=== PATIENT | female | born 1995 | race Caucasian/White ===

== ENCOUNTER 2023-03-29 09:07 | Outpatient (RCR) | payer BC, SELFPAY ==
[2023-03-29 09:15] VITALS: BP 125/82
[2023-03-29] MEDS: INJECTAFER 265 MG IV (09:31)
[2023-03-29 10:00] VITALS: BP 119/76
== END 2023-04-15 23:59 | disposition home or self-care (01) ==
LOC: OID 09:07
PROVIDERS: ATTENDING PHYSICIAN Psychiatry & Neurology Neurology; FAMILY PHYSICIAN Internal Medicine
DX: D50.9 Iron deficiency anemia, unspecified (principal); G43.111 Migraine with aura, intractable, with status migrainosus; G43.709 Chronic migraine without aura, not intractable, without status migrainosus; R79.0 Abnormal level of blood mineral; E53.8 Deficiency of other specified B group vitamins
CPT/HCPCS: 96365; J1439

== ENCOUNTER 2023-05-01 18:53 | Observation (INO) | payer BC, SELFPAY ==
[2023-05-01 11:20] VITALS: BP 109/85
--- NOTE | 2023-05-01 11:44 | ED.GENMED ---
History of Present Illness
General
Chief Complaint: Abdominal Symptoms
Source: patient and family
Exam Limitations: none
Time Seen by Provider: 05/01/23 11:28
Travel History
Have you had any contact with someone who has COVID-19?: No
Do you have any symptoms of coronavirus? Fever > 100 degrees, chills, cough, shortness of breath, sore throat, loss of taste or smell, muscle aches, or headache?: No
History of Present Illness
History of Present Illness:
27-year-old female presents with right-sided abdominal pain as well as vomiting. The patient states she had little bit of back pain yesterday and took note of it. She states it was somewhat mild. Today she woke up feeling okay but then developed
this progressive persistent pain in the right side. Patient states mostly in the right lower abdomen. The pain is constant and moderate to severe. She states she was vomiting and had chills at home but no worse. No diarrhea. She did have a
bowel movement after taking some stool softeners. She denies any injury. No dysuria. No obvious hematuria. Patient denies any abnormal vaginal bleeding or other gynecologic symptoms
Past History
Past History
ED Past Medical History: Asthma, Psychiatric (ADHD, bipolar) and Other (Migraine, Concussion, Kidney stones)
ED Past Surgical History: Other ([place] teeth, Left wrist cyst removed)
Social History
Tobacco: Non-smoker
Alcohol: Occasional
Drug: None
Personal: Single
Living: with roommate
Employment: Employed
Family History
Family History: Other (Reviewed and noncontributory)
Phy Exam
Physical Exam
Physical Exam:
CONSTITUTIONAL Patient alert and oriented to person, place and time. Moderate pain distress. Vital signs reviewed. Patient is standing at the bedside.
HEAD atraumatic, normocephalic.
EYES eyelids normal to inspection, Pupils equally round and reactive to light, Extraocular muscles intact, Conjunctiva normal, Sclera normal.
NECK normal range of motion, Trachea midline, no jugular venous distention.
RESPIRATORY CHEST No respiratory distress noted, Chest expansion equal, Bilateral breath sounds clear.
CARDIOVASCULAR regular rate and rhythm, Heart sounds normal.
ABDOMEN mild right lower quadrant tenderness, no rebound, Bowel sounds normal. No distention.
BACK normal inspection, no obvious deformities
UPPER EXTREMITY range of motion normal, Motor strength normal, no cyanosis, no edema.
LOWER EXTREMITY range of motion normal, Motor strength normal, no cyanosis, no edema.
NEURO Speech normal, No focal motor deficits, Parmele coma scale 15, Memory normal, Cranial Nerves intact to screening exam.
SKIN skin warm, dry, and normal in color.
PSYCHIATRIC patient oriented to person place and time, Normal affect.
Course
Orders/Labs/Results
Orders:
Orders
05/01/23 11:30
Test Result ONCE
05/01/23 11:41
Morphine Sulfate 4 mg IV NOW STA
Ondansetron Injectable [Zofran] 4 mg IV NOW STA
05/01/23 11:42
0.9% Sodium Chloride 1000 ml [Nss] 1,000 ml IV BOLUS
05/01/23 11:43
Complete Blood Count/With Diff Urgent
Comprehensive Metabolic Panel Urgent
Lipase Urgent
05/01/23 11:50
HCG, Urine Qualitative Screen Urgent
Date Specimen was Collected: 05/01/23
Time Specimen was Collected: 11:47
Urinalysis Reflex To Culture Urgent
Date Specimen was Collected: 05/01/23
Time Specimen was Collected: 11:47
Urine Microscopic Reflex Cult Urgent
05/01/23 12:09
Ketorolac [Toradol] 15 mg IV NOW STA
05/01/23 12:39
CT Abd/pel W Iv And Oral Contr Urgent
Comment:
Reason For Exam: RLQ abd pain
Iohexol [Omnipaque] See Protocol PO NOW STA
05/01/23 12:41
Renal & Bladder US [US Renal With Bladder] Urgent
Comment:
Reason For Exam: R sided pain
US Pelvis W Transvag Combined Urgent
Reason For Exam: R abd/pelvic pain
05/01/23 14:46
HYDROmorphone [Dilaudid] 0.5 mg .ROUTE .STK-MED ONE
05/01/23 14:48
HYDROmorphone [Dilaudid] 0.5 mg IV NOW STA
05/01/23 17:28
HYDROmorphone [Dilaudid] 0.5 mg IV NOW STA
Ondansetron Injectable [Zofran] 4 mg IV NOW STA
05/01/23 18:20
Lactated Ringers [Lr] 1,000 ml IV BOLUS
05/01/23 18:21
Ketorolac [Toradol] 15 mg IV NOW STA
05/01/23 18:37
0.9% Sodium Chloride [Nss (Preservative Free)] 10 ml IV NOW STA
Pantoprazole [Protonix IV] 40 mg IV NOW STA
05/01/23 18:39
0.9% Sodium Chloride [Nss (Preservative Free)] 8 ml IV NOW STA
Famotidine [Pepcid] 20 mg IV NOW STA
05/01/23 18:42
Admit/Transfer Patient As Directed
Co-Sign Provider:
Level of Care: Observation services
Assign to:: Medical/Surgical
Physician / Group: jasper camargo
Diagnosis: abdominal pain
Code Status As Directed
Resuscitation Status: Full Code
05/01/23 18:44
Norovirus by PCR Routine
JEANCARLOS Source: Feces/Stool
Specimen Description:
Stool Culture Routine
JEANCARLOS Source: Feces/Stool
Specimen Description:
Stool For WBC Stat
JEANCARLOS Source: Feces/Stool
Specimen Description:
Yersinia Culture-Stool Routine
JEANCARLOS Source: Feces/Stool
Specimen Description:
05/01/23 19:00
Flush (0.9% Sodium Chloride) [Flush (Nss)] See Dose Instructions IV PER PROTOCOL
05/01/23 19:04
COVID-19 Antigen Urgent
Source: Nasal Swab
Influenza A+B Rapid Molecular Urgent
JEANCARLOS Source: Nasal Swab
Specimen Description:
05/01/23 19:55
Morphine Sulfate 1 mg IV Q4HPRN PRN
05/01/23 21:23
Acetaminophen [Tylenol] 650 mg PO Q4HPRN PRN
Ketorolac [Toradol] 15 mg IV Q6HPRN PRN
Lactated Ringers [Lr] 1,000 ml IV 100 mls/hr
Ondansetron Injectable [Zofran] 4 mg IV Q6HPRN PRN
Rizatriptan Orally Disintegrat [Maxalt [employer] Route Supervisor (Orally Disintegrating)] 10 mg PO DAILYPRN PRN
05/01/23 21:23
Activity As Directed
Activity Level: As Tolerated
Pneumatic Compression Sleeves As Directed
Type: Knee high
Vital Signs As Directed
Frequency: Per unit guidelines
DX Deep Vein Thrombosis Video Routine
05/02/23 Breakfast
Clear Liquid
At Your Request: Full Participation
05/02/23 07:42
Complete Blood Count/No Diff IN AM
Comprehensive Metabolic Panel IN AM
05/02/23 08:00
Lamotrigine [Lamictal] 75 mg PO DAILY
Pantoprazole [Protonix IV] 40 mg IV BID
methylphenidate HCl 0 mg PO DAILY
Abnormal Lab Results
05/01/23 05/01/23
11:43 11:50
WBC 11.5 H 10^3/uL
(4.8-10.8)
MCH 32.1 H pg
(27.0-31.0)
Absolute Neuts (auto) 9.4 H 10^3/uL
(1.4-6.5)
Absolute Monos (auto) 0.7 H 10^3/uL
(0.1-0.6)
Neutrophils % 82.0 H %
(42.2-75.2)
Lymphocytes % 10.3 L %
(20.5-51.1)
Calcium 11.0 H mg/dl
(8.4-10.2)
Leukocyte Esterase Rfl Trace A
(Negative)
05/01/23 11:43
05/01/23 11:43
Vital Signs
Initial and Last Documented VS:
Initial Vital Signs
Temp Pulse Resp BP Pulse Ox
98.6 F 64 16 109/85 98
05/01/23 11:20 05/01/23 11:20 05/01/23 11:20 05/01/23 11:20 05/01/23 11:20
Last Documented Vital Signs
Temp Pulse Resp BP Pulse Ox
98.3 F 82 16 118/80 98
05/02/23 15:02 05/02/23 15:02 05/02/23 15:02 05/02/23 15:02 05/02/23 15:02
MDM/Problems Addressed
MDM/Problems Addressed:
Vomiting, abdominal pain
*Pulse Oximetry
Patient hypoxic: no
*Critical Care Note
Total Time (30-74mins, 75-104mins- exclusive of procedures): Not Applicable
Data Reviewed
Review of Other/Old Records Reveals: Radiology Studies (Prior CT of the abdomen report reviewed. July 2022)
Prescriptions/Medications Considered But Not Given:
Considered antibiotics but no signs of UTI or appendicitis
Patient Management
Escalation/DeEscalation of care consider admission/obs:
27-year-old female presents with severe abdominal pain and vomiting. CT negative for appendicitis. Ultrasound grossly unremarkable. Pain does continue to return as pain medications wear off. Briefly will be controlled with pain control but pain
returns to a significant degree. Anticipate admission for pain control. Question whether this could be viral in nature. Continue to monitor
ED Attending Note
-
Portions of this chart may have been created with voice recognition software.� Occasional wrong word or��sound alike� substitutions may have occurred due to the inherent limitations of voice recognition software.
Discharge Plan
Departure
Patient Disposition: Admit
Date of Disposition: 05/01/23
Time of Disposition: 17:49
Admit to: Med/Surg
Presentation/result/management discussed w/ accepting MD/DO: Hospitalist
Discharge Problem:
Intractable vomiting, Intractable abdominal pain
Interventions
Interventions:
*Risk Screen - Suicide Last Done: 05/01/23 11:30
*General Assessment Last Done: 05/01/23 11:30
*Neglect/Abuse Screening Last Done: 05/01/23 11:30
ED- Fall Risk Assessment Last Done: 05/01/23 21:30
*ED COVID-19 Vaccine History Last Done: 05/01/23 11:20
*Nursing Disposition Last Done: 05/01/23 21:30
WK-Vfncjg-Jurrjuoyqi Assessment Last Done: 05/01/23 11:30
Discharge Date and Time
Discharge Date/Time: 05/01/23 21:31
[2023-05-01 11:55] LABS: % Basophils 0.7 % (0-2); % Eosinophils 0.9 % (0-6); % Immature Granulocytes 0.3 % (0-0.5); % Lymphocytes 10.3 % (20.5-51.1); % Monocytes 5.8 % (1.7-9.3); Absolute Basophils 0.1 10^3/uL (0-0.2); Absolute Eosinophils 0.1 10^3/uL (0-0.7); Absolute Lymphocytes 1.2 10^3/uL (1.2-3.4); Absolute Monocytes 0.7 10^3/uL (0.1-0.6); Absolute Neutrophils 9.4 10^3/uL (1.4-6.5); Hematocrit 41.9 % (37.0-47.0); Hemoglobin 14.1 g/dL (12.0-16.0); Mean Corp Hgb Conc. 33.7 g/dL (33.0-37.0); Mean Corpuscular Hgb 32.1 pg (27.0-31.0); Mean Corpuscular Volume 95.4 fL (81.0-99.0); Mean Platelet Volume 10.4 fL (7.4-10.4); Nucleated Red Blood Cells % 0 %; Platelet Count 224 10^3/uL (130-400); Red Blood Cell Count 4.39 10^6/uL (4.20-5.40); Red Cell Dist. Width 11.9 % (11.5-14.5); White Blood Cell Count 11.5 10^3/uL (4.8-10.8)
[2023-05-01] MEDS: MORPHINE SULFATE 4 MG IV (11:57)
[2023-05-01] MEDS: ZOFRAN 4 MG IV ×2 (11:58→17:31)
[2023-05-01] MEDS: NSS 1000 IV (11:58)
[2023-05-01 12:08] LABS: ALT (SGPT) 20 U/L (0-35); AST (SGOT) 25 U/L (14-36); Alkaline Phosphatase 65 U/L (38-126); Blood Urea Nitrogen 10 mg/dl (7-17); Carbon Dioxide 28 mmol/L (22-30); Chloride 106 mmol/L (98-107); Glucose 86 mg/dl (70-99); Lipase 98 U/L (23-300); Potassium 3.8 mmol/L (3.5-5.1); Sodium 140 mmol/L (135-145); Total Bilirubin 0.9 mg/dl (0.2-1.3); Total Protein 7.8 g/dl (6.3-8.2); eGFR > 60.00
[2023-05-01 12:12] LABS: HCG, Urine Qualitative Screen Negative
[2023-05-01] MEDS: TORADOL 15 MG IV ×2 (12:12→19:05)
[2023-05-01 12:27] LABS: Urine Albumin Negative (Neg - Trace); Urine Bilirubin Negative (Negative); Urine Character Clear (Clear); Urine Color Yellow; Urine Glucose Negative (Negative); Urine Ketone Negative (Negative); Urine Leukocyte Trace (Negative); Urine Nitrite Negative (Negative); Urine Occult Blood Negative (Negative); Urine Specific Gravity 1.005 (<1.030); Urine Urobilinogen Negative (Neg - 1+)
[2023-05-01] MEDS: OMNIPAQUE 50 ML PO (12:46)
[2023-05-01 12:52] LABS: Urine Red Blood Cell 0-2 /HPF (0-2)
[2023-05-01 13:00] VITALS: BP 118/74
[2023-05-01] MEDS: DILAUDID 0.5 MG IV ×2 (14:49→17:31)
[2023-05-01 15:00] VITALS: BP 129/77
[2023-05-01 17:30] VITALS: BP 129/87
--- NOTE | 2023-05-01 18:26 | HPS.HSE ---
Addendum entered and electronically signed by Igor Mata MD 05/01/23 18:56:
I saw and examined the patient.
The OBSTETRICAL ANESTHESIOLOGIST or PA's note was reviewed and I agree with the note.
Comment:
27-year-old female with past medical history of asthma, ADHD, bipolar disease, migraine, kidney stones now presents for right-sided abdominal pain with subsequent �intractable vomiting.� Initially started with back pain yesterday, worsened with
progressive persistent pain to the right side today.� Pain is localized to the right lower abdomen, nontender.� Does not knowledge chills, vomiting, no diarrhea.� Pain causing n/v.
Vitals: normotensive, heart rate 130, afebrile, respiratory 20.
�White count 11.5 UA negative, hCG negative, both transvaginal and pelvic ultrasound as well as renal ultrasound unremarkable.� Plan�most likely viral gastroenteritis although no diarrhea.� PPI IV daily, famotidine now, IV fluids.� SARS-CoV-2, flu.�
Follow-up stool cultures, including norovirus if having any bowel movements.� Denies drug use. . if continued symptoms, will consult GI. Otherwise outpatient f/u.
Original Note:
Family Physician
-
Family Physician: Jan Verdugo
Chief Complaint
-
right lower quadrant pain
History of Present Illness
27-year-old female with PMH for ADHD,bipolar, migraine presented to us with right sided abdominal pain associated with n/v since yesterday. got worse today. denied any diarrhea. denied STORY< dizzy or syncopal episode. denied fever, chills, chest pain,
sob. denied dysuria or hematuria.
admitting for further management.
Medical History
Past Medical History
Past Medical History: Reports Other
Additional Past Medical History:
ADHD
biplar
migraine STORY
concussion
kidney stones
Past Surgical History: Reports None
Social History
Tobacco: Non-smoker
Alcohol: Occasional
Drug: None
Personal: Single
Employment: Employed
Family History
Family History: Not pertinent
Allergies / Home Medications
Allergies reflects when Allergies were last updated in [facility].
Home Medications with original date entered in [facility]
Allergy/Medication List:
Allergies
Allergy/AdvReac Type Severity Reaction Status Date / Time
Penicillins Allergy Hives/itchi Verified 05/01/23 11:21
ng
Home Medications
acetaminophen 500 mg tablet (Tylenol Extra Strength) 1,000 mg PO DAILYPRN PRN fever 07/08/21
lamotrigine 25 mg chewable dispersible tablet 75 mg PO DAILY migraines 07/08/21
methylphenidate HCl 36 mg tablet,extended release 24 hr 72 mg PO DAILY Attention deficit disorder 07/08/21
rizatriptan 10 mg tablet (Maxalt) 10 mg PO DAILYPRN PRN migraine 07/08/21
rimegepant 75 mg disintegrating tablet (Nurtec ODT) 75 mg PO ONCE PRN migraine 05/16/22
norethindrone (contraceptive) 0.35 mg (21) tablet 0.35 mg PO HS CONTROL 08/10/22
Ferrasorb 36 mg PO HS 03/29/23
atogepant 60 mg tablet (Qulipta) 60 mg PO DAILY 03/29/23
Review of Systems
-
Constitutional: Reports No Symptoms
EENT: Reports No Symptoms
Respiratory: Reports No Symptoms
Cardiac: Reports No Symptoms
Abdomen/GI: Reports Abdominal Pain, Nausea and Vomiting
: Reports No Symptoms
Musculoskeletal: Reports No Symptoms
Skin: Reports No Symptoms
Neurological: Reports No Symptoms
Endocrine: Reports No Symptoms
Hematologic/Lymphatic: Reports No Symptoms
Psych: Reports No Symptoms
Physical Exam
Vital Signs
Vital Signs
Temp Pulse Resp BP Pulse Ox
98.5 F 130 20 129/87 100
05/01/23 17:30 05/01/23 17:30 05/01/23 17:30 05/01/23 17:30 05/01/23 17:30
Physical Exam
General: Well Developed, Well Nourished and No Apparent Distress
HEENT: NormoCephalic, Moist mucous membranes and Atraumatic
Respiratory: Clear
Cardiac: S1/S2 and Regular Rhythm; No Murmur or Rub
GI: Soft, Non Distended, Normal Bowel Sounds and Tender; No Organomegaly
Rectal: Deferred by Provider
Musculoskeletal: No Clubbing, No Cyanosis and No Edema
Skin: No Rash
Neuro: AO x 3 and Nonfocal/grossly intact
Psych: Calm
Laboratory Results
-
05/01/23 11:43
05/01/23 11:43
Laboratory Results
Total Bilirubin 0.9 mg/dl (0.2-1.3) 05/01/23 11:43
AST 25 U/L (14-36) 05/01/23 11:43
ALT 20 U/L (0-35) 05/01/23 11:43
Alkaline Phosphatase 65 U/L (38-126) 05/01/23 11:43
Lipase 98 U/L (23-300) 05/01/23 11:43
Data Reviewed
-
CT Scan: Report Reviewed by me
Ultrasound: Report Reviewed by me
Lab Data: Labs Reviewed by me
Impression/Plan
-
#severe abdominal pain/intractable vomiting
-renal US with �Essentially unremarkable renal ultrasound, as detailed above. Incidental findings as described.
-pelvis transvaginal US with unremarkable
-CT abdomen pelvis with No significant acute abnormality identified in the abdomen or pelvis, as described above. Normal appendix.
-UA negative
-wbc 11.5
-clear liquid diet
-stool for cultures and norovirus
-LR 100cc/hr
-IV PPI bid
--Toradol,morphine prn for pain
-Zofran prn for n/v
-consider GI consult, if no improvement in abdominal pain
#HX ADHD on Methylphenidate for last 10 yrs
#HX Bipolar dz maintain on Lamictal
#HX Migraines
#SCD
#Full code
Obs
[2023-05-01] MEDS: LR 1000 IV ×2 (18:59→21:36)
--- NOTE | 2023-05-01 19:00 | EDRN ---
Report received, patient being medicated att his time, call donald in reach.
[2023-05-01] MEDS: PROTONIX IV 40 MG IV (19:05)
[2023-05-01] MEDS: PEPCID 20 MG IV (19:09)
[2023-05-01] MEDS: NSS (PRESERVATIVE FREE) 10 ML IV (19:09)
[2023-05-01] MEDS: NSS (PRESERVATIVE FREE) 8 ML IV (19:10)
[2023-05-01 19:12] VITALS: BMI 18.4
[2023-05-01 19:33] LABS: COVID-19 Antigen Negative (Negative)
--- NOTE | 2023-05-01 20:22 | EDRN ---
No delay sent to the floor
[2023-05-01] MEDS: MORPHINE SULFATE 1 MG IV (21:07)
[2023-05-01 21:36] VITALS: BP 147/98; BMI 18.6
[2023-05-01 23:16] VITALS: BP 113/70
[2023-05-02] MEDS: TORADOL 15 MG IV ×2 (00:26→20:42)
[2023-05-02] MEDS: ZOFRAN 4 MG IV ×3 (01:11→19:24)
[2023-05-02] MEDS: MORPHINE SULFATE 1 MG IV ×4 (01:13→19:24)
[2023-05-02] MEDS: LR 1000 IV ×2 (06:43→17:22)
[2023-05-02 07:52] VITALS: BP 111/76
[2023-05-02 07:58] LABS: Hematocrit 29.1 % (37.0-47.0); Hemoglobin 10.2 g/dL (12.0-16.0); Mean Corp Hgb Conc. 35.1 g/dL (33.0-37.0); Mean Corpuscular Volume 94.2 fL (81.0-99.0); Mean Platelet Volume 10.5 fL (7.4-10.4); Platelet Count 149 10^3/uL (130-400); Red Blood Cell Count 3.09 10^6/uL (4.20-5.40); Red Cell Dist. Width 11.9 % (11.5-14.5); White Blood Cell Count 5.8 10^3/uL (4.8-10.8)
[2023-05-02] MEDS: LAMICTAL 75 MG PO (08:35)
[2023-05-02] MEDS: PROTONIX IV 40 MG IV ×2 (08:36→20:31)
[2023-05-02] MEDS: NSS (PRESERVATIVE FREE) 10 ML IV ×2 (08:36→20:31)
[2023-05-02 08:51] LABS: ALT (SGPT) 14 U/L (0-35); AST (SGOT) 21 U/L (14-36); Albumin 3.2 g/dl (3.5-5.0); Alkaline Phosphatase 43 U/L (38-126); Blood Urea Nitrogen 6 mg/dl (7-17); Calcium 8.5 mg/dl (8.4-10.2); Carbon Dioxide 23 mmol/L (22-30); Chloride 110 mmol/L (98-107); Estimated Creatinine Clearance 92 ml/min; Glucose 100 mg/dl (70-99); Potassium 3.3 mmol/L (3.5-5.1); Sodium 137 mmol/L (135-145); Total Bilirubin 1.2 mg/dl (0.2-1.3); Total Protein 5.2 g/dl (6.3-8.2); eGFR > 60.00
[2023-05-02] MEDS: KCL ELIXIR 40 MEQ PO (09:44)
[2023-05-02] MEDS: NON-FORMULARY ITEM 72 MG PO (11:00)
[2023-05-02] MEDS: NON-FORMULARY ITEM 60 MG PO (11:15)
--- NOTE | 2023-05-02 13:03 | W.PN.HOSP.TC ---
Addendum entered and electronically signed by Igor Mata MD 05/02/23 13:10:
DVT ppx - SCDs, patient ambulating
Original Note:
Today's Communication/Plan
-
symptomatic Control
GI consulted
Assessment / Plan
Assessment / Plan
Physical Exam
General: Well Developed, Well Nourished and No Apparent Distress
HEENT: NormoCephalic, Moist mucous membranes and Atraumatic
Respiratory: Clear
Cardiac: S1/S2 and Regular Rhythm; No Murmur or Rub
GI: Soft, Mild RLQ tenderness; Non Distended, Normal Bowel Sounds and Tender; No Organomegaly
Rectal: Deferred by Provider
Musculoskeletal: No Clubbing, No Cyanosis and No Edema
Skin: No Rash
Neuro: AO x 3 and Nonfocal/grossly intact
Psych: Calm
#severe abdominal pain/intractable vomiting
-renal US with �Essentially unremarkable renal ultrasound, as detailed above. Incidental findings as described.
-Denies Cannabinoid, polysubstance use
-pelvis transvaginal US with unremarkable
-CT abdomen pelvis with No significant acute abnormality identified in the abdomen or pelvis, as described above. Normal appendix.
-UA negative
-Cont clear liquid diet
-stool for cultures and norovirus
-LR 100cc/hr
-IV PPI daily
--Toradol,morphine prn for pain
-Zofran prn for n/v
-GI consulted
#Hypokalemia
-monitor and replete
#HX ADHD on Methylphenidate for last 10 yrs
#HX Bipolar dz maintain on Lamictal
#HX Migraines
#SCD
#Full code
Obs
Anticipated Discharge: Within 24 hours
Subjective/Interval History
-
Date of Service: May 02, 2023
still nauseous, non specific right RLQ pain
Objective Data
-
Labs:
Laboratory Results
05/02/23
07:42
WBC 5.8
Hgb 10.2 L D
Hct 29.1 L
Plt Count 149 D
Sodium 137
Potassium 3.3 L
Chloride 110 H
Carbon Dioxide 23
BUN 6 L
Creatinine 0.7
Glucose 100 H
Calcium 8.5 D
Total Bilirubin 1.2
AST 21
ALT 14
Alkaline Phosphatase 43
Vital Signs:
Vital Signs
Temp Pulse Resp BP Pulse Ox
98.8 F 82 16 111/76 97
05/02/23 07:52 05/02/23 07:52 05/02/23 07:52 05/02/23 07:52 05/02/23 07:52
I&O
05/01/23 05/02/23 05/03/23
06:59 06:59 06:59
Intake Total 1000 / 1000
Balance 1000 / 1000
Review of Systems
-
History Source: Patient
All other systems: Reviewed and negative
Data Reviewed
-
CT Scan: Image personally visualized and interpreted and Report Reviewed by me
Ultrasound: Image personally visualized and interpreted and Report Reviewed by me
Labs: Labs Reviewed by me
[2023-05-02 15:02] VITALS: BP 118/80
--- NOTE | 2023-05-02 15:09 | CM ---
Patient seen at bedside. Patient OBS and reviewed form, signed form placed on chart. 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 Patient boyfriend lives with her in a private home. Patient PCP is Dr. Collins and she uses the [facility] in
[place]. CM will continue to follow for discharge planning needs.
Plan; home with no needs anticipated
--- NOTE | 2023-05-02 15:33 | CON.GI ---
Consultation
-
Date/Time Consultation Requested: 05/02/23 10:00am
Date/Time Consultation Performed: 05/02/23 3:34pm
Requesting Provider: Igor Mata
Performing Provider: Bogdan Ferrer
Reason for Consultation: RUQ pain
Medical History
Chief Complaint / HPI
Chief Complaint: RUQ pain
History of Present Illness:
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 Denied previously she had some back pain on both sides before she developed the abdominal pain the next
morning. Workup including CAT scan of the abdomen pelvis, transvaginal ultrasound, renal ultrasound has been negative. She does have a history of renal stones. She tried drinking clear liquids but then this led to vomiting. She has a history of
migraines which she admittedly was taking heavy ibuprofen previously but then was switched to Naprosyn about 3-4 times per week in December. She also has undergone Botox treatment for it.
Past Medical History
Past Medical History: Psychiatric (ADHD, bipolar) and Other (Migraines)
Past Surgical History: None
Social History
Tobacco: Non-Smoker
Alcohol: Occasional
Family History
Family History: Reviewed & Not Pertinent
Allergies / Home Medications
Allergy/AdvReac Type Severity Reaction Status Date / Time
Penicillins Allergy Hives/itchi Verified 05/01/23 11:21
ng
Medication Instructions Recorded
methylphenidate HCl 36 mg 72 mg PO DAILY Attention deficit 07/08/21
tablet,extended release 24 hr disorder
rimegepant 75 mg disintegrating 75 mg PO Q48H PRN migraine 05/16/22
tablet (Nurtec ODT)
Ferrasorb 36 mg PO HS Supplement 03/29/23
atogepant 60 mg tablet (Qulipta) 60 mg PO DAILY migraine 03/29/23
almotriptan malate 12.5 mg tablet 0 mg PO .COMPLEX migraine 05/01/23
cyanocobalamin (vitamin B-12) 1,000 mcg PO DAILY Supplement 05/01/23
1,000 mcg tablet
docusate sodium 100 mg capsule 100 mg PO DAILY PRN constipation 05/01/23
(Colace)
lamotrigine 25 mg tablet 75 mg PO DAILY bipolar 05/01/23
naproxen sodium 220 mg tablet 440 mg PO DAILYPRN PRN mild pain 05/01/23
(Aleve)
norethindrone (contraceptive) 0.35 0.35 mg PO HS CONTROL 05/01/23
mg tablet
ondansetron 4 mg disintegrating 4 mg PO Q8H PRN nausea 05/01/23
tablet
rizatriptan 10 mg tablet 0 mg PO .COMPLEX PRN migraine 05/01/23
ubrogepant 100 mg tablet (Ubrelvy) 100 mg PO DAILYPRN PRN migraine 05/01/23
Review of Systems
-
All other systems: A 12 pt ROS was Negative except as stated above in HPI
Vital Signs
Temp Pulse Resp BP Pulse Ox
98.3 F 82 16 118/80 98
05/02/23 15:02 05/02/23 15:02 05/02/23 15:02 05/02/23 15:02 05/02/23 15:02
Physical Exam
Exam
General: Well Developed, Well Nourished and No Apparent Distress
HEENT: Normocephalic and Atraumatic
Respiratory: Non Labored Respirations
GI: Soft, Non Distended and Tender (RUQ tenderness to deep palpation, somewhat worsened with inspiration)
Skin: Warm and Dry
Results
WBC 5.8 10^3/uL (4.8-10.8) 05/02/23 07:42
Hgb 10.2 g/dL (12.0-16.0) L D 05/02/23 07:42
Hct 29.1 % (37.0-47.0) L 05/02/23 07:42
MCV 94.2 fL (81.0-99.0) 05/02/23 07:42
Plt Count 149 10^3/uL (130-400) D 05/02/23 07:42
Absolute Neuts (auto) 9.4 10^3/uL (1.4-6.5) H 05/01/23 11:43
Sodium 137 mmol/L (135-145) 05/02/23 07:42
Potassium 3.3 mmol/L (3.5-5.1) L 05/02/23 07:42
Chloride 110 mmol/L (98-107) H 05/02/23 07:42
Carbon Dioxide 23 mmol/L (22-30) 05/02/23 07:42
BUN 6 mg/dl (7-17) L 05/02/23 07:42
Creatinine 0.7 mg/dL (0.6-1.0) 05/02/23 07:42
Calcium 8.5 mg/dl (8.4-10.2) D 05/02/23 07:42
Total Bilirubin 1.2 mg/dl (0.2-1.3) 05/02/23 07:42
AST 21 U/L (14-36) 05/02/23 07:42
ALT 14 U/L (0-35) 05/02/23 07:42
Alkaline Phosphatase 43 U/L (38-126) 05/02/23 07:42
Lipase 98 U/L (23-300) 05/01/23 11:43
Diagnostic Image Results:
Prior GI Procedures:
EGD:
Colonoscopy:
Assessment / Plan
-
Summary: 27yo female presents with back pain Wednesday night, followed by RUQ pain and vomiting day morning. CT AP, pelvic US, renal US negative. She has hx renal stones and migraines. She previously took heavy ibuprofen but switched to
Naproxyn last December, which she now takes about 3-4x/week.
Impression:
RUQ pain, vomiting
Naproxyn use
Migraines
Bipolar, ADHD
Renal stones
Recommendations:
Increase protonix to BID to treat possible NSAID ulcer
Check US RUQ to further exclude gallstones, despite negative CT
If no improvement, recommend EGD to evaluate for PUD
-
-
Thank you for consultation and allowing me to participate in the patient's care. Please call the network consultant GI physician during the after hours with any questions or concerns.
[2023-05-02 21:54] VITALS: BP 110/77
[2023-05-03] MEDS: LR 1000 IV ×2 (03:25→14:37)
[2023-05-03] MEDS: MORPHINE SULFATE 1 MG IV ×3 (03:26→20:26)
[2023-05-03 07:20] LABS: Hematocrit 30.8 % (37.0-47.0); Hemoglobin 10.4 g/dL (12.0-16.0); Mean Corp Hgb Conc. 33.8 g/dL (33.0-37.0); Mean Corpuscular Hgb 33.1 pg (27.0-31.0); Mean Corpuscular Volume 98.1 fL (81.0-99.0); Mean Platelet Volume 11.1 fL (7.4-10.4); Platelet Count 164 10^3/uL (130-400); Red Blood Cell Count 3.14 10^6/uL (4.20-5.40); Red Cell Dist. Width 11.7 % (11.5-14.5); White Blood Cell Count 5.7 10^3/uL (4.8-10.8)
[2023-05-03 07:46] LABS: ALT (SGPT) 14 U/L (0-35); AST (SGOT) 22 U/L (14-36); Albumin 3.2 g/dl (3.5-5.0); Alkaline Phosphatase 48 U/L (38-126); Blood Urea Nitrogen 5 mg/dl (7-17); Calcium 8.4 mg/dl (8.4-10.2); Carbon Dioxide 26 mmol/L (22-30); Chloride 108 mmol/L (98-107); Estimated Creatinine Clearance 92 ml/min; Glucose 73 mg/dl (70-99); Potassium 3.4 mmol/L (3.5-5.1); Sodium 136 mmol/L (135-145); Total Bilirubin 1.1 mg/dl (0.2-1.3); Total Protein 5.3 g/dl (6.3-8.2); eGFR > 60.00
[2023-05-03] MEDS: NON-FORMULARY ITEM 72 MG PO (07:46)
[2023-05-03] MEDS: LAMICTAL 75 MG PO (07:48)
[2023-05-03] MEDS: NON-FORMULARY ITEM 60 MG PO (07:48)
[2023-05-03 07:49] VITALS: BP 97/60
[2023-05-03] MEDS: NSS (PRESERVATIVE FREE) 10 ML IV ×2 (07:49→20:24)
[2023-05-03] MEDS: PROTONIX IV 40 MG IV ×2 (07:49→20:24)
[2023-05-03] MEDS: ZOFRAN 4 MG IV ×2 (07:50→14:37)
[2023-05-03] MEDS: TORADOL 15 MG IV (07:50)
[2023-05-03] MEDS: MAXALT MLT (ORALLY DISINTEGRATING) 10 MG PO (08:57)
--- NOTE | 2023-05-03 10:49 | W.PN.GI.CBS2 ---
Today's Communication / Plan
-
Continue protonix BID
Pt wants to try oral intake, solid food
If no better, then consisder EGD tomorrow. Will make NPO p MN in case symptoms persist.
If tolerates diet then OK to d/c
Perhaps NSAID ulcer from naprosyn use for migraine
Current nausea could be migraine related
Assessment / Plan
-
Summary: 27yo female presents with back pain Wednesday night, followed by RUQ pain and vomiting Wednesday morning. CT AP, pelvic US, renal US negative. She has hx renal stones and migraines. She previously took heavy ibuprofen but switched to
Naproxyn last December, which she now takes about 3-4x/week.
US abd- normal
Impression:
RUQ pain, vomiting
Naproxyn use
Migraines
Bipolar, ADHD
Renal stones
Subjective
Subjective
Date of Service: May 03, 2023
Had vomiting after clears this am. Abd pain is improved
Objective
Data Reviewed
Laboratory Data:
Laboratory Results
05/03/23 05:31
05/03/23 05:31
Laboratory Results
Total Bilirubin 1.1 mg/dl (0.2-1.3) 05/03/23 05:31
AST 22 U/L (14-36) 05/03/23 05:31
ALT 14 U/L (0-35) 05/03/23 05:31
Alkaline Phosphatase 48 U/L (38-126) 05/03/23 05:31
Lipase 98 U/L (23-300) 05/01/23 11:43
Vital Signs and I&O:
Vital Signs
Temp Pulse Resp BP Pulse Ox
98.3 F 83 16 97/60 100
05/03/23 07:49 05/03/23 07:49 05/03/23 07:49 05/03/23 07:49 05/03/23 07:49
I&O
05/02/23 05/03/23 05/04/23
06:59 06:59 06:59
Intake Total 1000 / 1000 3360 / 3360
Balance 1000 / 1000 3360 / 3360
Physical Exam
Physical Exam
GI: Soft, Non Distended and Tender (mild/minimal RUQ tender)
--- NOTE | 2023-05-03 12:26 | W.PN.HOSP.TC ---
Today's Communication/Plan
-
Encourage oral intake as tolerated
continue symptomatic care
Assessment / Plan
Assessment / Plan
# Severe abdominal pain/intractable vomiting
-renal US with �Essentially unremarkable renal ultrasound, as detailed above. Incidental findings as described.
-Denies Cannabinoid, polysubstance use
-pelvis transvaginal US with unremarkable
-CT abdomen pelvis with No significant acute abnormality identified in the abdomen or pelvis, as described above. Normal appendix.
-UA negative
-No reported diarrhea any further. Discontinue stool test
-Right upper quadrant abd ultrasound unremarkable
-Continue symptomatic care with pain medication/anti emetics. Slow IV fluid
#Hypokalemia
-monitor and replete
#HX ADHD on Methylphenidate for last 10 yrs
#HX Bipolar dz maintain on Lamictal
#HX Migraines
-Requiring Zofran/Nurtec/Botox/NSAIDs regularly, follows up with Dr Ku
SCD
Full code
Anticipated Discharge: Within 24 hours
Subjective/Interval History
-
Date of Service: May 03, 2023
continues to have pain in right flank
some nausea and decreased appetite
no vomiting episode
Objective Data
-
Labs:
Laboratory Results
05/03/23
05:31
WBC 5.7
Hgb 10.4 L
Hct 30.8 L
Plt Count 164
Sodium 136
Potassium 3.4 L
Chloride 108 H
Carbon Dioxide 26
BUN 5 L
Creatinine 0.7
Glucose 73
Calcium 8.4
Total Bilirubin 1.1
AST 22
ALT 14
Alkaline Phosphatase 48
Vital Signs:
Vital Signs
Temp Pulse Resp BP Pulse Ox
98.3 F 83 16 97/60 100
05/03/23 07:49 05/03/23 07:49 05/03/23 07:49 05/03/23 07:49 05/03/23 07:49
I&O
05/02/23 05/03/23 05/04/23
06:59 06:59 06:59
Intake Total 1000 / 1000 3360 / 3360
Balance 1000 / 1000 3360 / 3360
Review of Systems
-
Respiratory: Reports No Symptoms
Cardiac: Reports No Symptoms
Abdomen/GI: Reports Abdominal Pain and Nausea; Denies Vomiting or Diarrhea
Physical Exam
-
General: No Apparent Distress and Comfortable
HEENT: Negative Oxygen
Neuro: Awake, Alert, Oriented and No Motor Deficits
[2023-05-03 14:33] VITALS: BMI 18.6
--- NOTE | 2023-05-03 14:58 | CM ---
Reviewed the chart notes. No needs identified. CM continues to be available to patient/family and is monitoring medical plan for needs at discharge.
Plan: Discharge to home when stable.
[2023-05-03 15:36] VITALS: BP 135/94
[2023-05-03 23:34] VITALS: BP 99/74
[2023-05-04 08:20] VITALS: BP 94/57
[2023-05-04] MEDS: PROTONIX IV 40 MG IV (08:36)
[2023-05-04] MEDS: NSS (PRESERVATIVE FREE) 10 ML IV (08:37)
--- NOTE | 2023-05-04 09:06 | PTCARENOTE ---
pt aaox3. pt npo due to abd pain. 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 pt went down for EGD this AM via stretcher. AM medications will be given when pt returns to the floor.
[2023-05-04 09:22] VITALS: BP 124/99; BP_SYST 18
--- NOTE | 2023-05-04 09:25 | W.PN.UPDATE ---
Update Note
Progress Note Update
Follow up made 06/06 9:30 am with Lupe ORELLANA
Continue PPI, avoid NSAIDs
OK DC GI POV if tolerates diet
[2023-05-04 09:28] VITALS: BP 124/99; BP_SYST 18
[2023-05-04] MEDS: ZOFRAN 4 MG IV (09:36)
[2023-05-04 09:37] VITALS: BP 123/87; BP_SYST 12
[2023-05-04 09:52] VITALS: BP 113/78; BP_SYST 12
[2023-05-04] MEDS: LAMICTAL 75 MG PO (10:15)
[2023-05-04] MEDS: NON-FORMULARY ITEM 72 MG PO (10:16)
[2023-05-04] MEDS: PROTONIX 40 MG PO (10:16)
[2023-05-04] MEDS: NON-FORMULARY ITEM 60 MG PO (10:16)
--- NOTE | 2023-05-04 13:01 | W.PN.HOSP.TC ---
Today's Communication/Plan
-
d/c home
Assessment / Plan
Assessment / Plan
# Severe abdominal pain/intractable vomiting
-renal US with �Essentially unremarkable renal ultrasound, as detailed above. Incidental findings as described.
-Denies Cannabinoid, polysubstance use
-pelvis transvaginal US with unremarkable
-CT abdomen pelvis with No significant acute abnormality identified in the abdomen or pelvis, as described above. Normal appendix.
-UA negative
-No reported diarrhea any further. Discontinue stool test
-Right upper quadrant abd ultrasound unremarkable
-EGD showing gastritis without ulcer.
#Hypokalemia
-monitor and replete
#HX ADHD on Methylphenidate for last 10 yrs
#HX Bipolar dz maintain on Lamictal
#HX Migraines
-Requiring Zofran/Nurtec/Botox/NSAIDs regularly, follows up with Dr Ku
SCD
Full code
More than 30 minutes spent in discharge including
Final examination of the patient
Summarizing hospital stay
Instructions for continuing care to all relevant caregivers
Preparation of discharge records, prescriptions, and referral forms
Total time spent (in minutes): 39 mins
Anticipated Discharge: Today
Subjective/Interval History
-
Date of Service: May 04, 2023
pain is improved
able to tolerate diet
Objective Data
-
Vital Signs:
Vital Signs
Temp Pulse Resp BP Pulse Ox
98.6 F 75 12 113/78 95
05/04/23 09:52 05/04/23 09:52 05/04/23 09:52 05/04/23 09:52 05/04/23 09:52
I&O
05/03/23 05/04/23 05/05/23
06:59 06:59 06:59
Intake Total 3360 / 3360 2240 / 2240
Balance 3360 / 3360 2240 / 2240
Review of Systems
-
Respiratory: Denies No Symptoms
Cardiac: Denies No Symptoms
Abdomen/GI: Reports Abdominal Pain; Denies Nausea or Vomiting
Physical Exam
-
General: Well Nourished; Negative Fever
HEENT: Negative Oxygen
Neuro: Awake, Alert, Oriented and No Motor Deficits
--- NOTE | 2023-05-04 16:46 | W.DCSUMMARY ---
Discharge Summary
Discharge Data
Date of Admission: 05/01/23
Date of Discharge: 05/04/23
-
Pending Results: No
Hospital Course
Discharging Physician : Dr Aaron Tejada
Disposition : Home
Primary care physician : Dr Genaro Verdugo
Principal Discharge diagnosis :
Acute gastritis
Chronic Discharge diagnosis :
Refractory migraine
Attention deficit disorder
Hospital Course :
Patient is a 27-year-old female with above-mentioned past medical history came in for new onset right upper quadrant abdominal pain and vomiting starting day before ER presentation. Initial lab evaluation in ER was not showing any concerning sign
of liver/gallbladder issues. No other major metabolic derangements noted. CT scan of abdomen pelvis ruled out any acute issues. Trans vaginal ultrasound ruled out any problems with adnexal tissue/ovaries. Renal ultrasound ruled out any kidney
stones/pyelonephritis/obstruction. Patient have history of refractory migraine and was started on naproxen for migraine control in December. Gastroenterology was involved in care for further evaluation. Repeat follow-up litigated right upper
quadrant ultrasound was done which ruled out any cholelithiasis/CBD stone. Patient was managed symptomatically during this time and did have improvement in symptoms although not complete resolution. GI discussed potential need of EGD which showed
patient having mild gastritis. Patient was able to tolerate diet later during the hospital stay. Patient was prescribed twice daily Protonix and as needed Zofran at discharge with some pain medication. Patient will require repeat outpatient
gastroenterology evaluation if patient continues to have further issues with pain.
Important imaging findings :
None
Procedure findings :
None
Discharge Plan
-
Patient Disposition: Home (Routine Discharge)
Discharge Diagnosis/Procedures: Gastritis, flank pain
Condition: Fair
Diet: Regular
Activity: As tolerated
Driving Restrictions: No driving
Bathing Restrictions: OK to Shower
Referrals:
Jan Verdugo MD [Family Provider] - in one week
White,Lupe M., PA-C [Specified Professional Personl] - 06/07/23 9:30 am (Please call to reschedule if you can not keep this appointment. If your insurance requires a referral please contact your primary care physician prior to your appointment. )
Prescriptions:
New
rizatriptan 10 mg Tablet,Disintegrating
10 mg PO DAILYPRN PRN (Reason: migraine) Qty: 30 0RF
ondansetron 4 mg tablet,disintegrating
4 mg PO DAILY PRN (Reason: nausea and vomiting) 5 Days Qty: 30 0RF
pantoprazole [Protonix] 40 mg tablet,delayed release (DR/EC)
40 mg PO BID Qty: 60 0RF
oxycodone 5 mg tablet
5 mg PO Q8H PRN (Reason: Mod sev pain) Qty: 14 0RF
Continued
methylphenidate HCl 36 MG tablet extended release 24hr
72 mg PO DAILY
Patient Comments:
05/01/2023, pt. filled this med. on 04/15/2023 for 60 tablets per PDMP.
Nurtec ODT 75 mg Tablet,Disintegrating
75 mg PO Q48H PRN (Reason: migraine)
Qulipta 60 mg Tablet
60 mg PO DAILY
Ferrasorb
36 mg PO HS
almotriptan malate 12.5 mg Tablet
0 mg PO .COMPLEX
Rx Instructions:
take 1 tab (12.5 mg) at onset of migraine; if no relief may repeat 1 tab in 1 hr; MAX 2 tabs (25 mg)/24 hr.
rizatriptan 10 mg Tablet
0 mg PO .COMPLEX PRN (Reason: migraine)
Rx Instructions:
05/01/2023, take 1 tab at onset of headache; if no relief may repeat 1 tab after at least 2 hrs; max = 3 tabs/24 hr.
cyanocobalamin (vitamin B-12) 1,000 mcg Tablet
1,000 mcg PO DAILY
lamotrigine 25 mg Tablet
75 mg PO DAILY
docusate sodium [Colace] 100 mg Capsule
100 mg PO DAILY PRN (Reason: constipation)
norethindrone (contraceptive) 0.35 mg Tablet
0.35 mg PO HS
Ubrelvy 100 mg Tablet
100 mg PO DAILYPRN PRN (Reason: migraine)
Discontinued
naproxen sodium [Aleve] 220 mg Tablet
440 mg PO DAILYPRN PRN (Reason: mild pain)
ondansetron [Zofran ODT] 4 mg Tablet,Disintegrating
4 mg PO Q8H PRN (Reason: nausea)
Discharge Orders:
Discharge Patient (As Directed); Ordered 05/04/23
Ordered By: Aaron Tejada
Discharge Date and Time
Discharge Date/Time: 05/04/23 12:09
== END 2023-05-04 12:09 | disposition home or self-care (01) ==
LOC: 2 NORTH 18:53
PROVIDERS: Registered Nurse; ADMITTING PHYSICIAN Internal Medicine; ATTENDING PHYSICIAN Hospitalist; CONSULT PHYSICIAN Specialist; EMERGENCY PHYSICIAN Emergency Medicine; FAMILY PHYSICIAN Internal Medicine
DX: K29.00 Acute gastritis without bleeding (principal); R10.31 Right lower quadrant pain; F31.9 Bipolar disorder, unspecified; R11.2 Nausea with vomiting, unspecified; E87.6 Hypokalemia; K31.89 Other diseases of stomach and duodenum; J45.909 Unspecified asthma, uncomplicated; G43.909 Migraine, unspecified, not intractable, without status migrainosus; F90.9 Attention-deficit hyperactivity disorder, unspecified type; Z87.442 Personal history of urinary calculi; Z11.52 Encounter for screening for COVID-19; Z88.0 Allergy status to penicillin; Z79.3 Long term (current) use of hormonal contraceptives
CPT/HCPCS: 43239; 88305; 74177; 76700; 76770; 76830; 76856; 80053; 81003; 81015; 81025; 83690; 85025; 85027; 87502; 87811; 88342; 93005; 96361; 96374; 96375; 96376; 99285; G0378; Q9967

== ENCOUNTER 2023-05-28 10:37 | Outpatient (RCR) | payer BC, SELFPAY ==
[2023-05-28 11:09] VITALS: BP 118/86
[2023-05-28] MEDS: INJECTAFER 264.300000000000011 MG IV (11:21)
[2023-05-28 12:00] VITALS: BP 115/74
== END 2023-05-31 08:47 | disposition home or self-care (01) ==
LOC: OID 10:37
PROVIDERS: ATTENDING PHYSICIAN Psychiatry & Neurology Neurology; FAMILY PHYSICIAN Internal Medicine
DX: D50.9 Iron deficiency anemia, unspecified (principal); G43.111 Migraine with aura, intractable, with status migrainosus; G43.709 Chronic migraine without aura, not intractable, without status migrainosus; R79.0 Abnormal level of blood mineral; E53.8 Deficiency of other specified B group vitamins
CPT/HCPCS: 96365; J1439

== ENCOUNTER 2023-07-03 22:04 | Emergency (ER) | payer BC, SELFPAY ==
[2023-07-03 22:06] VITALS: BP 135/93
--- NOTE | 2023-07-03 22:27 | ED.GENMED ---
History of Present Illness
General
Chief Complaint: Headache
Source: patient
Exam Limitations: none
Time Seen by Provider: 07/03/23 22:18
Travel History
Have you had any contact with someone who has COVID-19?: No
Do you have any symptoms of coronavirus? Fever > 100 degrees, chills, cough, shortness of breath, sore throat, loss of taste or smell, muscle aches, or headache?: No
History of Present Illness
History of Present Illness:
This is a 27 year old female that comes in with multiple complaints. State that for the past 4-5 days she had had a migraine. States that it is on the left forehead and then there is tingling all over head head. States that she has taken Nurtec
every other day and Maxalt every other day and nothing is helping. State that she is using Zofran around the clock when she is away. States that she also took Naproxen for the headache pain. State that she has been getting iron infusion but now she
is bleeding for the past 1-2 months. States that she also has lower back pain. States that she has had nausea with vomiting, headache with dizziness. Denies any fever, chills, chest pain, SOB, abd pain, diarrhea, urinary burning.
Past History
Past History
ED Past Medical History: Arrthythmia (SVT), Asthma, Psychiatric (ADHD, bipolar) and Other (Migraine, Concussion, Kidney stones, Gastritis, Ovarian cyst, Eczema, Iron def anemia, )
ED Past Surgical History: Orthopedic (Left wrist cyst) and Other ([place] teeth, Left wrist cyst removed)
Social History
Tobacco: Non-smoker
Alcohol: Occasional
Drug: None
Personal: Single
Living: with roommate
Employment: Employed
Family History
Family History: Other (Reviewed and noncontributory)
Review of Systems
Review of Systems
All Other Systems: ROS reviewed and negative except as documented in HPI and ROS
Constitutional: Reports no symptoms; Denies fever or chills
EENT: Reports no symptoms
Respiratory: Reports no symptoms; Denies cough or trouble breathing
Cardiac: Reports no symptoms; Denies chest pain
ABD/GI: Reports nausea and vomiting; Denies abdominal pain or diarrhea
: Reports bleeding (Vaginal bleeding for 1-2 months); Denies dysuria, frequency or urgency
Musculoskeletal: Reports no symptoms
Skin: Reports no symptoms
Neurological: Reports dizzy and headache
Psychiatric: Reports no symptoms
Phy Exam
General Physical Exam
General Presentation: no apparent distress
General age: appears stated age
General Skin: warm and dry
General Habitus: normal
General Mental: alert
General Hydration: appears well hydrated
ENT Exam
ENT Exam: TM's normal, pharynx normal and neck supple
Eye Exam
Eye Exam: EOMI
Cardiovascular Exam
Cardiovascular Exam: regular rate/rhythm, no edema, no murmur and normal peripheral pulses
Pulmonary Exam
Pulmonary Exam: lungs clear, no respiratory distress, no rales, chest non tender, no crackles, no rhonchi, no wheezing and no cough
Gastrointestinal Exam
Gastrointestinal Exam: normal bowel sounds, soft, no organomegaly, no pulsatile mass, non distended and tender (Left side abd tenderness with palpation)
Musculoskeletal Exam
Musculoskeletal Exam: full ROM and no edema
Skin Exam
Skin Exam: normal color, warm/dry, no rash and no petechia
Psychiatric Exam
Psychiatric Exam: normal mood/affect
Course
Orders/Labs/Results
Orders:
Orders
07/03/23 22:20
0.9% Sodium Chloride 1000 ml [Nss] 1,000 ml IV BOLUS
Acetaminophen [Tylenol] 1,000 mg PO NOW STA
Dexamethasone Sod Phosphate [Decadron] 20 mg IV NOW STA
Diphenhydramine [Benadryl] 25 mg IV NOW STA
Ketorolac [Toradol] 30 mg IV NOW STA
Prochlorperazine [Compazine] 5 mg IV NOW STA
Test Result ONCE
07/03/23 22:27
US Pelvis W Transvag Combined Urgent
Reason For Exam: abnormal vaginal bleeding
07/03/23 22:31
B12 [Vitamin B12] Urgent
Complete Blood Count/With Diff Urgent
Comprehensive Metabolic Panel Urgent
Ferritin Urgent
HCG, Serum Qualitative Screen Urgent
Abnormal Lab Results
07/03/23
22:31
RBC 3.89 L 10^6/uL
(4.20-5.40)
Hct 36.5 L %
(37.0-47.0)
MCH 32.6 H pg
(27.0-31.0)
MPV 11.0 H fL
(7.4-10.4)
Absolute Monos (auto) 0.7 H 10^3/uL
(0.1-0.6)
Potassium 3.4 L mmol/L
(3.5-5.1)
Ferritin 245.0 H ng/ml
(6.24-137)
Vitamin B12 > 1000 H pg/ml
(239-931)
07/03/23 22:31
07/03/23 22:31
Potassium very slightly low. HCG negative. Ferritin 245.0 elevation. B12 >1000
Vital Signs
Initial and Last Documented VS:
Initial Vital Signs
Temp Pulse Resp BP Pulse Ox
98.1 F 106 16 135/93 100
07/03/23 22:06 07/03/23 22:06 07/03/23 22:06 07/03/23 22:06 07/03/23 22:06
Last Documented Vital Signs
Temp Pulse Resp BP Pulse Ox
98.1 F 90 18 114/86 99
07/03/23 22:06 07/04/23 00:24 07/04/23 00:24 07/04/23 00:24 07/04/23 00:24
MDM/Problems Addressed
Differential Diagnosis Includes:
Migraine, Ovarian cyst/Fibroids
MDM/Problems Addressed:
This is a 27 year old female that comes in with c/o migraine for the past 4-5 days and abnormal vaginal bleeding. State that she has been bleeding for the past 1-2 months. States that she is getting iron infusion and feels that what is the use of
doing this if she is bleeding continually.
Will check labs, US and medicate for headache.
Back into see patient. Patient states that her headache is gone. Patient does not want to wait for the US report as she will look this up on her own. 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 Patient refused Pelvic exam at this time. Return with any
concerns.
Chronic conditions affecting care:
Migraines
Acute Exacerbation and/or Progression of Chronic Illness:
Migraines
*Radiology
Radiology exam reviewed: radiology read reviewed (US-Normal appearance of the uterus and right ovary. Within the left ovary, there is a complex cystic structure with appearance highly suggestive of a Hemorrhagic cyst. In a 27-year old patient, no
further imaging follow-up is generally recommended for this finding, unless there are persistenti) and other (US cont- Persistent clinical symptoms. NO free pelvic fluid. )
*Pulse Oximetry
Patient hypoxic: no
*EKG
Interpreted by ED Provider?: NA
Rate: EKG- N/A
*Financial Business Analyst Interpretation
Rate: Financial Business Analyst- N/A
*Critical Care Note
Total Time (30-74mins, 75-104mins- exclusive of procedures): Not Applicable
ED Attending Note
-
Portions of this chart may have been created with voice recognition software.� Occasional wrong word or��sound alike� substitutions may have occurred due to the inherent limitations of voice recognition software.
Discharge Plan
Departure
Patient Disposition: Home (Routine Discharge)
Date of Disposition: 07/04/23
Time of Disposition: 00:32
Patient with high blood pressure during this ER visit?: No
Condition: Good
Covid-19: Not Applicable
Discharge Problem:
Migraine, Abnormal vaginal bleeding
Instructions: Migraines (DC), Bleeding Between Periods
Prescriptions:
No Action
methylphenidate HCl 36 MG tablet extended release 24hr
72 mg PO DAILY
Patient Comments:
05/01/2023, pt. filled this med. on 04/15/2023 for 60 tablets per PDMP.
Nurtec ODT 75 mg Tablet,Disintegrating
75 mg PO Q48H PRN (Reason: migraine)
Ferrasorb
36 mg PO HS
naproxen 375 mg Tablet
440 mg PO PRN PRN (Reason: MIGRAINE)
zolmitriptan 5 mg Tablet,Disintegrating
5 mg PO PRN PRN (Reason: MIGRAINE)
Rx Instructions:
take 1 tab at onset of headache; if no relief, may repeat 1 tab after at least 2 hrs; max = 2 tabs/24 hrs
almotriptan malate 12.5 mg Tablet
12.5 mg PO PRN PRN (Reason: MIGRAINE)
rizatriptan 10 mg Tablet
10 mg PO PRN PRN (Reason: migraine)
Rx Instructions:
05/01/2023, take 1 tab at onset of headache; if no relief may repeat 1 tab after at least 2 hrs; max = 3 tabs/24 hr.
cyanocobalamin (vitamin B-12) 1,000 mcg Tablet
1,000 mcg PO DAILY
lamotrigine 25 mg Tablet
75 mg PO DAILY
docusate sodium [Colace] 100 mg Capsule
100 mg PO DAILY PRN (Reason: constipation)
norethindrone (contraceptive) 0.35 mg Tablet
0.35 mg PO HS
ondansetron 4 mg tablet,disintegrating
4 mg PO DAILY PRN (Reason: nausea and vomiting) 5 Days Qty: 30 0RF
pantoprazole [Protonix] 40 mg tablet,delayed release (DR/EC)
40 mg PO BID Qty: 60 0RF
Referrals:
Jan Verdugo MD [Family Provider] - Follow up in 2-3 days
Activity Restrictions/Additional Instructions:
As discussed, please follow up with your Neurologist and the family doctor for your Migraines. You will also need to see your FLARE WORKER for further evaluation. Please use your medication at home for your headache pain. Please increase your water intake
to 8-8oz glasses daily. IF YOU HAVE ANY OTHER CONCERNS PLEASE RETURN TO THE EMERGENCY ROOM.
Interventions
Interventions:
*Risk Screen - Suicide Last Done: 07/03/23 22:06
*General Assessment Last Done: 07/03/23 22:06
*Neglect/Abuse Screening Last Done: 07/03/23 22:06
ED- Fall Risk Assessment Last Done: 07/03/23 22:56
*ED COVID-19 Vaccine History Last Done: 07/03/23 22:58
*Nursing Disposition Last Done: 07/04/23 00:25
ED- Neurological Assessment Last Done: 07/03/23 22:16
Discharge Date and Time
Discharge Date/Time: 07/04/23 00:30
Print Language: AZERI
[2023-07-03] MEDS: TYLENOL 1000 MG PO (22:31)
[2023-07-03] MEDS: DECADRON 20 MG IV (22:32)
[2023-07-03] MEDS: TORADOL 30 MG IV (22:32)
[2023-07-03] MEDS: NSS 1000 IV (22:32)
[2023-07-03] MEDS: COMPAZINE 5 MG IV (22:33)
[2023-07-03] MEDS: BENADRYL 25 MG IV (22:33)
[2023-07-03 22:51] LABS: % Basophils 0.8 % (0-2); % Eosinophils 1.3 % (0-6); % Immature Granulocytes 0.4 % (0-0.5); % Lymphocytes 26.8 % (20.5-51.1); % Monocytes 8.2 % (1.7-9.3); % Neutrophils 62.5 % (42.2-75.2); Absolute Basophils 0.1 10^3/uL (0-0.2); Absolute Eosinophils 0.1 10^3/uL (0-0.7); Absolute Lymphocytes 2.1 10^3/uL (1.2-3.4); Absolute Monocytes 0.7 10^3/uL (0.1-0.6); Hematocrit 36.5 % (37.0-47.0); Hemoglobin 12.7 g/dL (12.0-16.0); Mean Corp Hgb Conc. 34.8 g/dL (33.0-37.0); Mean Corpuscular Hgb 32.6 pg (27.0-31.0); Mean Corpuscular Volume 93.8 fL (81.0-99.0); Nucleated Red Blood Cells % 0 %; Platelet Count 216 10^3/uL (130-400); Red Blood Cell Count 3.89 10^6/uL (4.20-5.40); Red Cell Dist. Width 11.5 % (11.5-14.5); White Blood Cell Count 7.9 10^3/uL (4.8-10.8)
[2023-07-03 23:03] LABS: HCG, Serum Qualitative Screen Negative
[2023-07-03 23:07] LABS: ALT (SGPT) 18 U/L (0-35); AST (SGOT) 21 U/L (14-36); Albumin 4.5 g/dl (3.5-5.0); Alkaline Phosphatase 45 U/L (38-126); Blood Urea Nitrogen 10 mg/dl (7-17); Calcium 9.4 mg/dl (8.4-10.2); Carbon Dioxide 25 mmol/L (22-30); Chloride 106 mmol/L (98-107); Glucose 88 mg/dl (70-99); Potassium 3.4 mmol/L (3.5-5.1); Sodium 140 mmol/L (135-145); Total Bilirubin 0.4 mg/dl (0.2-1.3); Total Protein 6.8 g/dl (6.3-8.2); eGFR > 60.00
[2023-07-04 00:24] VITALS: BP 114/86
[2023-07-04 01:09] LABS: Vitamin B12 > 1000 pg/ml (239-931)
== END 2023-07-04 00:30 | disposition home or self-care (01) ==
LOC: EMR 22:04
PROVIDERS: Clinical Nurse Specialist Family Health; EMERGENCY PHYSICIAN Student in an Organized Health Care Education/Training Program; FAMILY PHYSICIAN Internal Medicine
DX: G43.909 Migraine, unspecified, not intractable, without status migrainosus (principal); N93.9 Abnormal uterine and vaginal bleeding, unspecified; R42 Dizziness and giddiness; R51.9 Headache, unspecified; R11.2 Nausea with vomiting, unspecified; M54.50 Low back pain, unspecified; R20.2 Paresthesia of skin; J45.909 Unspecified asthma, uncomplicated; I47.10 Supraventricular tachycardia, unspecified; F90.9 Attention-deficit hyperactivity disorder, unspecified type; F31.9 Bipolar disorder, unspecified; D50.9 Iron deficiency anemia, unspecified; Z87.442 Personal history of urinary calculi; Z88.0 Allergy status to penicillin
CPT/HCPCS: 99284; 96374; 96375 ×3; 96361; 76830; 76856; 80053; 82607; 82728; 84703; 85025

== ENCOUNTER 2023-09-07 20:02 | Emergency (ER) | payer BC, SELFPAY ==
[2023-09-07 20:06] VITALS: BP 138/79
[2023-09-07 20:14] VITALS: BMI 21.3
[2023-09-07] MEDS: LOPRESSOR 5 MG IV (21:20)
[2023-09-07 21:25] VITALS: BP 120/84
--- NOTE | 2023-09-07 21:54 | ED.GENMED ---
History of Present Illness
General
Chief Complaint: Heart Rate Problem
Source: patient
Time Seen by Provider: 09/07/23 20:12
History of Present Illness
History of Present Illness:
27-year-old female presents to the emergency room complaining of tachycardia. Patient states that earlier in the day today she began experiencing a rapid heart rate. She measured it at times to be as high as 190. With vagal maneuvers that seem to
improve to 170s. Patient took 20 mg of propranolol twice with minimal improvement. 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 While attempting to work she was feeling dizzy and lightheaded. She was placed on the monitor
and her heart rate was noted to be 165. Patient has had episodes such as this previously. She was hospitalized about 6 months ago and was evaluated by Dr. Langston at that time. There was question of inappropriate sinus tachycardia versus atrial
tachycardia. This is when she was prescribed the propranolol. She had an echo which was unremarkable.
Past History
Past History
ED Past Medical History: Arrthythmia (SVT), Asthma, Psychiatric (ADHD, bipolar) and Other (Migraine, Concussion, Kidney stones, Gastritis, Ovarian cyst, Eczema, Iron def anemia, )
ED Past Surgical History: Orthopedic (Left wrist cyst) and Other ([place] teeth, Left wrist cyst removed)
Social History
Tobacco: Non-smoker
Alcohol: Occasional
Drug: None
Personal: Single
Living: with roommate
Employment: Employed
Family History
Family History: Other (Reviewed and noncontributory)
Phy Exam
Physical Exam
Physical Exam:
General: Awake, Alert, Oriented X3. No acute distress.
Vitals: unremarkable
Head: Atraumatic
Eyes: Pupils equal, EOMI
Neck: Trachea midline
Lungs: Clear and equal b/l
Heart: Tachycardic, no murmurs
Abd: Soft, Nontender, No pulsatile mass
Neuro: Nonfocal
Skin: Warm, dry, no rash
Extremities: pulses equal b/l, no edema
Course
Orders/Labs/Results
Orders:
Orders
09/07/23 20:04
EKG [Electrocardiogram (*1)] Urgent
Reason for Study: Tachycardia
EKG- Treatment ONCE
09/07/23 21:05
Metoprolol [Lopressor] 5 mg IV NOW STA
Vital Signs
Initial and Last Documented VS:
Initial Vital Signs
Pulse Resp BP Pulse Ox
127 18 138/79 100
09/07/23 20:06 09/07/23 20:06 09/07/23 20:06 09/07/23 20:06
Last Documented Vital Signs
Pulse Resp BP Pulse Ox
88 14 120/84 100
09/07/23 21:45 09/07/23 21:45 09/07/23 21:25 09/07/23 20:15
MDM/Problems Addressed
Differential Diagnosis Includes:
SVT, sinus tachycardia, atrial tachycardia
MDM/Problems Addressed:
Patient had an initial heart rate on the monitor 165. EKG shows heart rate in 129-133 range. Heart rate stays there pretty consistently. Patient is tachycardic at rest. She had recent labs which were unremarkable. No benefit to repeating labs
now. Specifically her TSH was normal in December. These episodes of tachycardia predate that test. Discussed patient's presentation with Dr. garrett who is on-call for [facility] cardiology. He agrees with a dose of IV beta-cammie at this
time. He will see the patient in the office tomorrow.
*Pulse Oximetry
Patient hypoxic: no
*EKG
Interpreted by ED Provider?: Yes
Heart Rate: 124
Rate: tachycardiac
Rhythm: sinus arrhythmia
[place]: normal axis
Interval: normal interval
QRS Pattern: normal QRS
Ischemia: no ischemia
*Shop Welder Interpretation
Rate: tachycardiac
Heart Rate: 124
Rhythm: sinus arrhythmia
*Critical Care Note
Total Time (30-74mins, 75-104mins- exclusive of procedures): Not Applicable
ED Attending Note
-
Portions of this chart may have been created with voice recognition software.� Occasional wrong word or��sound alike� substitutions may have occurred due to the inherent limitations of voice recognition software.
Discharge Plan
Departure
Patient Disposition: Home (Routine Discharge)
Date of Disposition: 09/07/23
Time of Disposition: 21:54
Patient with high blood pressure during this ER visit?: No
Condition: Good
Discharge Problem:
Symptomatic tachycardia
Instructions: Arrhythmias (DC)
Prescriptions:
No Action
methylphenidate HCl 36 MG tablet extended release 24hr
72 mg PO DAILY
Patient Comments:
05/01/2023, pt. filled this med. on 04/15/2023 for 60 tablets per PDMP.
Nurtec ODT 75 mg Tablet,Disintegrating
75 mg PO Q48H PRN (Reason: migraine)
Ferrasorb
36 mg PO HS
naproxen 375 mg Tablet
440 mg PO PRN PRN (Reason: MIGRAINE)
zolmitriptan 5 mg Tablet,Disintegrating
5 mg PO PRN PRN (Reason: MIGRAINE)
Rx Instructions:
take 1 tab at onset of headache; if no relief, may repeat 1 tab after at least 2 hrs; max = 2 tabs/24 hrs
almotriptan malate 12.5 mg Tablet
12.5 mg PO PRN PRN (Reason: MIGRAINE)
rizatriptan 10 mg Tablet
10 mg PO PRN PRN (Reason: migraine)
Rx Instructions:
05/01/2023, take 1 tab at onset of headache; if no relief may repeat 1 tab after at least 2 hrs; max = 3 tabs/24 hr.
cyanocobalamin (vitamin B-12) 1,000 mcg Tablet
1,000 mcg PO DAILY
lamotrigine 25 mg Tablet
75 mg PO DAILY
docusate sodium [Colace] 100 mg Capsule
100 mg PO DAILY PRN (Reason: constipation)
norethindrone (contraceptive) 0.35 mg Tablet
0.35 mg PO HS
ondansetron 4 mg tablet,disintegrating
4 mg PO DAILY PRN (Reason: nausea and vomiting) 5 Days Qty: 30 0RF
pantoprazole [Protonix] 40 mg tablet,delayed release (DR/EC)
40 mg PO BID Qty: 60 0RF
Referrals:
Mitul Garrett MD [Active] -
Jan Verdugo MD [Family Provider] -
Activity Restrictions/Additional Instructions:
You should receive a call in the morning to tell you what time to go to the office tomorrow.
Interventions
Interventions:
ED- Fall Risk Assessment Last Done: 09/07/23 20:43
*ED COVID-19 Vaccine History Last Done: 09/07/23 20:06
ED- Cardiac Assessment Last Done: 09/07/23 20:14
ED- Pulmonary Assessment Last Done: 09/07/23 20:15
Discharge Date and Time
Print Language: DJIBOUTIAN
== END 2023-09-07 22:31 | disposition home or self-care (01) ==
LOC: EMR 20:02
PROVIDERS: EMERGENCY PHYSICIAN Emergency Medicine; FAMILY PHYSICIAN Internal Medicine
DX: R00.0 Tachycardia, unspecified (principal); R42 Dizziness and giddiness; J45.909 Unspecified asthma, uncomplicated; F90.9 Attention-deficit hyperactivity disorder, unspecified type; F31.9 Bipolar disorder, unspecified; D50.9 Iron deficiency anemia, unspecified; Z87.19 Personal history of other diseases of the digestive system; Z87.442 Personal history of urinary calculi
CPT/HCPCS: 99283; 96374; 93005

== ENCOUNTER → 2023-09-08 17:38 | Outpatient (REF) | payer BC, SELFPAY ==
[2023-09-08 18:39] LABS: % Basophils 0.7 % (0-2); % Immature Granulocytes 0.2 % (0-0.5); % Lymphocytes 22.9 % (20.5-51.1); % Monocytes 7.5 % (1.7-9.3); % Neutrophils 65.7 % (42.2-75.2); Absolute Basophils 0.1 10^3/uL (0-0.2); Absolute Eosinophils 0.3 10^3/uL (0-0.7); Absolute Monocytes 0.7 10^3/uL (0.1-0.6); Absolute Neutrophils 5.7 10^3/uL (1.4-6.5); Hematocrit 37.1 % (37.0-47.0); Hemoglobin 12.9 g/dL (12.0-16.0); Mean Corp Hgb Conc. 34.8 g/dL (33.0-37.0); Mean Corpuscular Hgb 32.7 pg (27.0-31.0); Mean Corpuscular Volume 94.2 fL (81.0-99.0); Mean Platelet Volume 10.8 fL (7.4-10.4); Nucleated Red Blood Cells % 0 %; Platelet Count 219 10^3/uL (130-400); Red Blood Cell Count 3.94 10^6/uL (4.20-5.40); White Blood Cell Count 8.7 10^3/uL (4.8-10.8)
[2023-09-08 18:58] LABS: ALT (SGPT) 18 U/L (0-35); AST (SGOT) 25 U/L (14-36); Alkaline Phosphatase 59 U/L (38-126); Blood Urea Nitrogen 15 mg/dl (7-17); Calcium 9.9 mg/dl (8.4-10.2); Carbon Dioxide 27 mmol/L (22-30); Chloride 103 mmol/L (98-107); Glucose 93 mg/dl (70-99); Potassium 3.7 mmol/L (3.5-5.1); Sodium 139 mmol/L (135-145); Total Bilirubin 0.6 mg/dl (0.2-1.3); Total Protein 7.4 g/dl (6.3-8.2); eGFR > 60.00
== END ==
LOC: REG 17:38
PROVIDERS: ATTENDING PHYSICIAN Internal Medicine Cardiovascular Disease; FAMILY PHYSICIAN Internal Medicine
DX: I47.10 Supraventricular tachycardia, unspecified (principal)
CPT/HCPCS: 80053; 85025

== ENCOUNTER 2023-09-28 07:35 | Day surgery (SDC) | payer BC, SELFPAY ==
[2023-09-28] VITALS (15 sets, daily range): BP systolic 103–131; BP diastolic 68–93; BMI 18.4
[2023-09-28 08:17] LABS: HCG, Urine Qualitative Screen Negative
--- NOTE | 2023-09-28 11:00 | ITS.CL.ABL ---
[employer] - Ablation
Ablation
Procedure Report:
Electrophysiology study:
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
Date of the Procedure:
09/28/2023
Indications: Tachycardia
Pre-Operative Diagnosis: Supra ventricular Tachycardia
Post-Operative Diagnosis: Sinus Tachycardia
Procedure Performed: EP study
Performing physician:
Mitul Chou MD
Anesthesia:
See anesthesia records
Detailed Description of the Procedure:
Written informed consent was obtained from the patient after a full explanation of the risks and benefits of the procedure including the risks of sedation and anesthesia.
The patient was brought to the electrophysiology laboratory in stable condition in fasting state. Continuous electrocardiographic and hemodynamic monitoring was initiated. The initial rhythm was normal sinus.
The procedure site was meticulously prepared with surgical scrub and allowed to dry with no pooling. Sterile draping was applied to cover the procedure site. The image intensifier was draped with sterile bag and positioned over the patient.
After infusion of local anesthetic, vascular access was obtained under ultrasound guidance and sheaths were placed over guide wire as detailed below.
Sheaths:
��������� 8Fr sheath in right femoral vein
��������� 7Fr sheath in right femoral vein
��������� 6Fr sheath in right femoral vein
��������� 6Fr sheath in right femoral vein
Catheters:
��������� 6Fr - Grace Quad-cath at HRA
���������
��������� 6Fr - Grace Quad-cath at RVa
��������� 6Fr -QRD-cath at HIS
��������� Decapolar Bard catheter - at locations of CS
Baseline intervals (milliseconds):
PP interval (baseline cycle length): 751
P wave duration: 109
UT interval: 189
QRS duration:92
QT/QTc interval: 361/406
P onset to AVJ: 35
AH interval: 109
His duration: 12
HV interval: 44
Q onset to RVa: 0
Sinus Node Function:
Burst pacing was performed from the right atrium to measure the sinus node recovery time (SNRT) and corrected sinus node recovery time (cSNRT). The sinus node functions are within acceptable normal range.
Atrioventricular Hansel Function:
Atrial stimulation with incremental pacing intervals was performed from the high right atrium (HRA) and right ventricular apex (RVa) and antegrade and retrograde atrioventricular (AV) block cycle lengths were determined. The antegrade AV Wenckebach
was noted at 430 msec.
Programmed atrial stimulation was performed with drive train of 500 msec followed by a single atrial extra-stimulus and the AV hansel and the atrial ERPs were determined. The AV hansel ERP was 500/340 msec and the atrial ERP was <500/340 msec.
There was normal decremental conduction noted through the AV node. The programmed stimuli showed no evidence of dual pathways or echo beats.
Ventricular stimulation showed concentric, midline and decremental retrograde conduction through the AV node and retrograde AV hansel ERP was <550/[address] train of 600 msec.
The AV hansel functions are deemed within normal range and no sign of dual pathway noted.
Ventricular Function:
Single ventricular extrastimuli were delivered following drive train of 500 msec and 450 msec the ventricular ERP was determined 200 msec. The ventricular electrical functions are within acceptable range.
Para-Hisian pacing:
The proximal CS was noted in the RA and the conduction from the RVa showed possible VA pathway and the Para-Hisian pacing was attempted. The high voltage captured the His with narrow QRS and VA time was 143 msec. The low voltage captured the RV with
wide QRS and the VA time was 188 msec. This is a hansel response and accessory pathway was ruled out.�
Arrhythmia Induction:
Programmed stimulation and burst pacing attempted. There was no arrhythmia induced with aggressive induction maneuvers.
No sustained arrhythmia was inducible.
Drug testing:
Isuprel was started at 2 mcg /min with adequate tachycardia response noted.
With the 2 mcg/min Isuprel, patient developed sinus tachycardia and the arrhythmia induction was again attempted during the Isuprel and during the washout phase.
There was sinus tachycardia (168 bpm) noted after brief Isuprel administration and Isuprel was discontinued. The EP study was done during the tachycardia that showed VAAV response from ventricular overdrive pacing. The tachycardia was gradual and
the RA/CS activation remained unchanged. The tachycardia slowed gradually as well indicative of sinus response.
The EP study along with arrhythmia induction was repeated with programmed stimulation and the burst pacing was not able to induce any sustained arrhythmia.
The EP study during the washout phase was again attempted but no arrhythmia was noted.
Procedure End
Following the completion of the EP study, catheters were removed. The sheaths were removed and hemostasis achieved with VASCADE and manual compression.
Estimated Blood loss:
<5 cc
Specimens Removed:
None.
Implants / Devices:
None
Urine output:
None
Packs / Drains/ Tubes:
None
Instrument / Sponge Count Correct:
Yes
Complications of the Procedure:
None
Condition of Patient at Time of Transfer:
Hemodynamically stable with no neurological or vascular compromise.
Summary:
Normal electrophysiology study with Isuprel and no sustained supra-ventricular arrhythmia noted.
Exaggerated response to Isuprel noted with sinus tachycardia.
Recommend Propranolol 40 mg BID
[2023-09-28] MEDS: ZOFRAN 4 MG IV (12:24)
[2023-09-28] MEDS: INDERAL 40 MG PO (12:58)
--- NOTE | 2023-09-28 13:37 | W.PN.UPDATE ---
Update Note
Progress Note Update
27 yo WF post EP study non inducible for atrial arrhythmias only ST. She came to recovery and had another episode of ST HR 160's and felt lightheaded. It slowed with bearing down methods. She will be started on propranolol 40mg bid with first dose
now. Her groin site is c/d/i no HT. She will f/u [employer] in 2 weeks. She is for d/c home after 2pm.
== END 2023-09-28 14:30 | disposition home or self-care (01) ==
LOC: CATH 07:35
PROVIDERS: ATTENDING PHYSICIAN Internal Medicine Cardiovascular Disease; FAMILY PHYSICIAN Internal Medicine
DX: I47.10 Supraventricular tachycardia, unspecified (principal); Z79.899 Other long term (current) drug therapy
CPT/HCPCS: 93620; C1730; C1894; 76937; 81025; 93005; 93623; C1760

== ENCOUNTER → 2024-03-08 06:41 | Outpatient (REF) | payer BC, SELFPAY ==
[2024-03-08 07:25] LABS: HDL Cholesterol 65 mg/dl; LDL Cholesterol, Calculated 64 mg/dl; Total Cholesterol 144 mg/dl (50-199); Triglyceride 78 mg/dl (10-149); Very Low Density Lipoprotein 15 mg/dl (0-30)
== END ==
LOC: OLAB 06:41
PROVIDERS: ATTENDING PHYSICIAN Internal Medicine
DX: Z00.00 Encounter for general adult medical examination without abnormal findings (principal); Z00.8 Encounter for other general examination
CPT/HCPCS: 80061